=== PATIENT | male | born 1955 | race Caucasian/White ===

== ENCOUNTER 2017-07-21 12:47 | Day surgery (SDC) | payer OTHER ==
[2017-07-21] MEDS ORDERED: PROPOFOL 20 ML (15:51)
[2017-07-21] MEDS ORDERED: MIDAZOLAM 1 MG/ML 2 ML INJ (15:51)
[2017-07-21] MEDS ORDERED: FENTAnyl 50 MCG/ML VIAL (15:52)
== END 2017-07-21 16:30 | disposition home or self-care (01) ==
LOC: GIL 12:47
DX: Z12.11 Encounter for screening for malignant neoplasm of colon (principal); D12.2 Benign neoplasm of ascending colon; D12.4 Benign neoplasm of descending colon; K62.1 Rectal polyp; K64.8 Other hemorrhoids; I10 Essential (primary) hypertension
CPT/HCPCS: 45380; 88305